=== PATIENT | female | born 1950 | race Caucasian/White ===

== ENCOUNTER 2020-05-21 10:00 | Emergency (ER) | payer MEDICAID ==
[~2020-05-21] VITALS: Ht 157.5 cm; Wt 238.0 kg
[~2020-05-21 10:00] MED LIST: ALBU18HF2 INH; BUPR150T8 PO; ESCI20TA PO; FLUT1DIS4 INH; L-THYROXINE; METH20TA PO; PRED50TA PO; [UNRECOGNIZED DRUG - CODE] TP
[2020-05-21] MEDS ORDERED: TETanus/Pertussis (Acell)/Diphther VAC/PF (Tdap-Adult) 0.5ml syringe IMVAC ONE (10:20)
[2020-05-21] MEDS ORDERED: sulfamethoxazole/trimethoprim DS (800/160mg) tablet PO ONE (10:20)
[2020-05-21] MEDS ORDERED: ipratropium/albuterol 3ml nebule NEB ONE (10:20)
[2020-05-21] MEDS ORDERED: bacitracin 15gm ointment TP ONE (10:20)
[2020-05-21] MEDS ORDERED: dexamethasone sod phosphate 10mg/ml inj IV STA (10:20)
--- NOTE | 2020-05-21 10:29 | NUR ---
notified dr montejo that pt is allergic to bactrm abx ,as per md he will change the orders.
[2020-05-21 10:52] LABS: BASOPHILS # (AUTO) 0.1 X10'3 (0-0.2); EOSINOPHILS # (AUTO) 0.5 X10'3 (0-0.9); HEMATOCRIT 43.3 % (35.0-45.0); LYMPHOCYTES # (AUTO) 2.5 X10'3 (1.1-4.8); LYMPHOCYTES % (AUTO) 34.1 % (21-51); MEAN CORPUSCULAR HEMOGLOBIN 25.9 PG (27.0-31.0); MEAN CORPUSCULAR HGB CONC 32.4 g/dL (33.0-36.5); MEAN PLATELET VOLUME 7.3 FL (7.4-10.4); MONOCYTES % (AUTO) 13.5 % (2-12); NEUTROPHILS # (AUTO) 3.2 X10'3 (1.8-7.7); NEUTROPHILS % (AUTO) 44.4 % (42-75); PLATELET COUNT 246 X10'3 (140-440); RED BLOOD COUNT 5.42 X10'6 (4.20-5.60); RED CELL DISTRIBUTION WIDTH 15.6 % (11.5-14.5); WHITE BLOOD COUNT 7.3 X10'3 (4.5-11.0)
[2020-05-21 11:04] LABS: ALANINE AMINOTRANSFERASE 33 U/L (12-78); ALBUMIN 3.4 G/DL (3.4-5.0); ALBUMIN/GLOBULIN RATIO 0.9 (1.1-1.5); ALKALINE PHOSPHATASE 101 IU/L (46-116); ANION GAP 5 (8-16); ASPARTATE AMINO TRANSFERASE 32 U/L (10-37); BILIRUBIN,TOTAL 0.4 MG/DL (0.1-1.0); BLOOD UREA NITROGEN 15 MG/DL (7-18); BUN/CREATININE RATIO 17.6 (6.6-38.0); CALCIUM 8.4 MG/DL (8.5-10.1); CHLORIDE 105 MMOL/L (99-107); CREATININE 0.85 MG/DL (0.40-0.90); GLUCOSE 115 MG/DL (70-104); POTASSIUM 4.2 MMOL/L (3.5-5.1); SODIUM 141 MMOL/L (135-145); TOTAL CARBON DIOXIDE 30.9 MMOL/L (24-32); TOTAL PROTEIN 7.2 G/DL (6.4-8.2); eGFR 67 ML/MIN
--- NOTE | 2020-05-21 12:12 | NUR ---
pt resting in bed quietly .pt spo2 88-91 on ra .intiated o2 3 l spo2 96%.
[2020-05-21] MEDS ORDERED: ALBU8HFA PO (12:24)
[2020-05-21] MEDS ORDERED: PRED20TA PO (12:24)
[2020-05-21] MEDS ORDERED: DOXY100C43 PO (12:24)
--- NOTE | 2020-05-21 12:33 | NUR ---
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
[2020-05-21 12:48] VITALS: BP 127/78
== END 2020-05-21 12:50 | disposition home or self-care (01) ==
LOC: ER 10:00
DX: J44.1 Chronic obstructive pulmonary disease with (acute) exacerbation (principal); R06.02 Shortness of breath; J45.909 Unspecified asthma, uncomplicated; F41.9 Anxiety disorder, unspecified; F32.9 Major depressive disorder, single episode, unspecified; Z87.01 Personal history of pneumonia (recurrent); Z86.2 Personal history of diseases of the blood and blood-forming organs and certain disorders involving the immune mechanism; Z85.9 Personal history of malignant neoplasm, unspecified; Z98.890 Other specified postprocedural states; Z88.1 Allergy status to other antibiotic agents; Z88.8 Allergy status to other drugs, medicaments and biological substances; Z79.2 Long term (current) use of antibiotics; Z79.899 Other long term (current) drug therapy
CPT/HCPCS: 36415; 71045; 80053; 83880; 84484; 85025; 90471; 90715; 93005; 94640; 96374; 99285; J1100; 94760

== ENCOUNTER 2021-04-27 15:40 | Emergency (ER) | payer MEDICARE, MEDICAID ==
[~2021-04-27] VITALS: Ht 157.5 cm; Wt 109.0 kg
[2021-04-27 17:12] LABS: BASOPHILS # (AUTO) 0.1 X10'3 (0-0.2); BASOPHILS % (AUTO) 0.7 % (0-1); EOSINOPHILS # (AUTO) 0.4 X10'3 (0-0.9); EOSINOPHILS % (AUTO) 3.9 % (0-6); HEMATOCRIT 37.9 % (35.0-45.0); HEMOGLOBIN 11.7 g/dl (12.0-16.0); LYMPHOCYTES # (AUTO) 1.6 X10'3 (1.1-4.8); LYMPHOCYTES % (AUTO) 17.4 % (21-51); MEAN CORPUSCULAR HEMOGLOBIN 22.7 PG (27.0-31.0); MEAN CORPUSCULAR VOLUME 73.4 FL (78-98); MEAN PLATELET VOLUME 7.3 FL (7.4-10.4); MONOCYTES % (AUTO) 11.1 % (2-12); NEUTROPHILS # (AUTO) 6.2 X10'3 (1.8-7.7); NEUTROPHILS % (AUTO) 66.9 % (42-75); PLATELET COUNT 292 X10'3 (140-440); RED BLOOD COUNT 5.16 X10'6 (4.20-5.60); RED CELL DISTRIBUTION WIDTH 17.9 % (11.5-14.5); WHITE BLOOD COUNT 9.3 X10'3 (4.5-11.0)
[2021-04-27 17:34] LABS: ALANINE AMINOTRANSFERASE 29 U/L (12-78); ALBUMIN 3.4 G/DL (3.4-5.0); ALKALINE PHOSPHATASE 116 IU/L (46-116); ANION GAP 6 (8-16); ASPARTATE AMINO TRANSFERASE 22 U/L (10-37); BILIRUBIN,TOTAL 0.2 MG/DL (0.1-1.0); BLOOD UREA NITROGEN 26 MG/DL (7-18); BUN/CREATININE RATIO 33.8 (6.6-38.0); CALCIUM 7.9 MG/DL (8.5-10.1); CHLORIDE 108 MMOL/L (99-107); CREATININE 0.77 MG/DL (0.40-0.90); GLUCOSE 99 MG/DL (70-104); POTASSIUM 4.5 MMOL/L (3.5-5.1); SODIUM 140 MMOL/L (135-145); TOTAL CARBON DIOXIDE 25.7 MMOL/L (24-32); TOTAL PROTEIN 6.8 G/DL (6.4-8.2); eGFR 75 ML/MIN
[2021-04-27] MEDS ORDERED: HYDROcodone/acetaminophen 5mg/325mg tablet PO ONE (19:05)
[2021-04-27 21:08] VITALS: BP 146/88
--- NOTE | 2021-04-27 21:10 | NUR ---
TRANSFER NO LONGER NEEDED PER TYLOR ARIAS
[2021-04-27] MEDS ORDERED: PERM60CR19 TP (21:11)
[2021-04-27] MEDS ORDERED: HYDR-3965 PO (21:11)
== END 2021-04-27 21:30 | disposition home or self-care (01) ==
LOC: ER 15:41
DX: M25.552 Pain in left hip (principal); Z20.822 Contact with and (suspected) exposure to COVID-19; G89.29 Other chronic pain; R10.2 Pelvic and perineal pain; M79.605 Pain in left leg; J44.9 Chronic obstructive pulmonary disease, unspecified; F41.9 Anxiety disorder, unspecified; F32.9 Major depressive disorder, single episode, unspecified; Z86.2 Personal history of diseases of the blood and blood-forming organs and certain disorders involving the immune mechanism; Z87.01 Personal history of pneumonia (recurrent); Z98.890 Other specified postprocedural states; Z85.9 Personal history of malignant neoplasm, unspecified; Z88.1 Allergy status to other antibiotic agents; Z88.8 Allergy status to other drugs, medicaments and biological substances; Z79.899 Other long term (current) drug therapy
CPT/HCPCS: 36415; 71045; 74176; 80053; 84145; 85025; 87635; 99285; C9803